=== PATIENT | male | born 1995 | race Caucasian/White ===

== ENCOUNTER 2016-03-24 21:24 | Emergency (ER) | payer OTHER ==
[~2016-03-24] VITALS: Ht 180.3 cm; Wt 78.7 kg
[2016-03-24 21:27] VITALS: TEMP 36.9; Ht 180.3 cm; Wt 78.7 kg
[2016-03-24] MEDS ORDERED: IBUP-103 PO (21:44)
--- NOTE | 2016-03-24 22:15 | DIAGNOSTIC IMAGING REPORT ---
RIGHT KNEE 3 VIEWS CLINICAL HISTORY: anterior pain/swelling s/p fall Right trauma. Pain. COMPARISON: None. DISCUSSION: Prepatellar soft tissue edema. No acute bony abnormality. Small ossific fragment posterior to the tibial spines with a be related to old trauma. No joint effusion. IMPRESSION: Prepatellar soft tissue edema. No acute bony abnormality. Electronically signed by: Gavin Og M.D. 03/24/2016 10:14 PM Dictated Date/Time: 03/24/2016 10:13 PM
--- NOTE | 2016-03-24 22:53 | EMERGENCY ROOM VISIT NOTE ---
ED Visit Note First contact with patient: 21:54 Chief Complaint: RIGHT Knee Injury History of Present Illness: This patient is a 20-year-old male who presents to the Emergency Department this evening for evaluation of their RIGHT Knee Injury. Patient states that they injured the knee while snowboarding. They report moderate pain over the anterior aspect of the knee after landing directly on the anterior surface of the RIGHT the knee. Pain is worse with ambulation. They deny any numbness or tingling into the distal extremity including the toes. They deny any pain extending into the affected foot or leg. Patient reports no previous fractures or surgeries of the affected knee. Patient rates his current discomfort as a 3/10. Patient has tried icing for their pain with mild relief of their symptoms. Medications: No current medications. Allergies: No known allergies. PMH: No pertinent past medical history. SHx: Patient is a 20-year-old [employer] student who lives with roommates. ROS: All pertinent positive and negative review of systems are appropriately documented in the History of Present Illness. Physical Exam: VITAL SIGNS - Vital signs and nursing notes were reviewed. GENERAL - 20-year-old male appearing his stated age and in noticeable discomfort throughout the exam. MUSCULOSKELETAL - RIGHT knee with moderate edema noted overlying the anterior and lateral surface. Mild tenderness to palpation appreciated over the anterior aspect of the knee. +5/5 strength appreciated bilaterally. No posterior sag sign. RANGE OF MOTION: Greater than 110 Flexion with 0 Extension. PATELLAR APPREHENSION TEST: Unremarkable. VARUS/VALGUS STRESS: Unremarkable. KRISSY'S TEST: Without guarding. Strong Endpoint. ANTERIOR/POSTERIOR DRAWER TEST: Without guarding. Strong endpoint. NEUROLOGIC/VASCULAR - Neurovascularly intact distally with +3/5 dorsalis pedis pulses palpated bilaterally. Normal sensation to light and sharp touch appreciated distally. IMAGING: RIGHT KNEE 3 VIEWS CLINICAL HISTORY: anterior pain/swelling s/p fall Right trauma. Pain. COMPARISON: None. DISCUSSION: Prepatellar soft tissue edema. No acute bony abnormality. Small ossific fragment posterior to the tibial spines with a be related to old trauma. No joint effusion. IMPRESSION: Prepatellar soft tissue edema. No acute bony abnormality. ED Course: Patient was seen and evaluated by myself. Patient was provided an ice pack for comfort. Patient declines for their complaint of pain. X-rays were obtained of the affected knee. Imaging results as above. Images were discussed and reviewed with the patient who acknowledges understanding. Patient was provided an Shahriar Wrap and Crutches for their comfort. Patient will utilize [id number] medications for pain control at home. Patient educated on worrisome symptoms for return visit to the emergency department. Patient with follow-up with their primary care provided in 4-5 days if their symptoms are not improving. Patient discharged to home in good condition. Impression: RIGHT Knee Contusion, Traumatic Prepatellar Bursitis Discharge Instructions: You have been treated in the Emergency Department for Knee Contusion with Traumatic Prepatellar Bursitis. For pain control, you can use the following [id number] medicines (if >12 yo): - Regular strength (325mg/tab) Tylenol (acetaminophen) 2 tabs every 4-6 hours as needed. Do not exceed 12 tablets in a 24 hour period. Avoid taking more than 4 grams (4000 mg) of Tylenol per day. This includes any other sources of acetaminophen you may take on a regular basis. - Regular strength (200 mg/tab) Advil (ibuprofen) 1-2 tabs every 4-6 hours as needed. Do not exceed a dose of 3200 mg per day. If this is a recent injury (<24 hrs), ice can be applied to the area of pain for the first 3 days to help decrease pain and inflammation. Ice massages can be performed by freezing water in a paper cup, peeling back the cup to expose the ice and then massaging over the affected area. You have been provided the number for an Orthopaedic Surgeon. You should call this number as soon as possible to establish a follow-up visit from today's Emergency Department visit. Keep the knee brace in place until cleared by Orthopedics. Use the crutches you have been provided to keep ALL weight off of the knee until weight bearing is tolerable. Return to the Emergency Department if your current symptoms worsen despite treatment course outlined above. Current/Historical Medications Scheduled Ibuprofen Tab (Advil), 400 MG PO PRN UD Allergies Coded Allergies: No Known Allergies (Unverified , 11/26/13) Vital Signs Date Time Temp Pulse Resp B/P Pulse Ox O2 Delivery O2 Flow Rate FiO2 03/24/16 23:06 100 18 133/86 96 03/24/16 23:00 100 18 133/86 96 Room Air 03/24/16 21:27 36.9 118 18 133/81 96 Room Air Departure Information Impression Primary Impression: Contusion of knee Additional Impression: Prepatellar bursitis Dispostion Home / Self-Care Condition GOOD Referrals [facility] (PCP) Patient Instructions ED Bursitis, [facility] Additional Instructions You have been treated in the Emergency Department for Knee Contusion with Traumatic Prepatellar Bursitis. For pain control, you can use the following [id number] medicines (if >12 yo): - Regular strength (325mg/tab) Tylenol (acetaminophen) 2 tabs every 4-6 hours as needed. Do not exceed 12 tablets in a 24 hour period. Avoid taking more than 4 grams (4000 mg) of Tylenol per day. This includes any other sources of acetaminophen you may take on a regular basis. - Regular strength (200 mg/tab) Advil (ibuprofen) 1-2 tabs every 4-6 hours as needed. Do not exceed a dose of 3200 mg per day. If this is a recent injury (<24 hrs), ice can be applied to the area of pain for the first 3 days to help decrease pain and inflammation. Ice massages can be performed by freezing water in a paper cup, peeling back the cup to expose the ice and then massaging over the affected area. You have been provided the number for an Orthopaedic Surgeon. You should call this number as soon as possible to establish a follow-up visit from today's Emergency Department visit. Keep the knee brace in place until cleared by Orthopedics. Use the crutches you have been provided to keep ALL weight off of the knee until weight bearing is tolerable. Return to the Emergency Department if your current symptoms worsen despite treatment course outlined above. Problem Qualifiers Primary Impression: Contusion of knee Encounter type: initial encounter Laterality: right Qualified Codes: S80.01XA - Contusion of right knee, initial encounter Additional Impression: Prepatellar bursitis Laterality: right Qualified Codes: M70.41 - Prepatellar bursitis, right knee
[2016-03-24 23:06] VITALS: BP 133/86; PULSE 100; O2SAT 96
== END 2016-03-24 23:07 | disposition home or self-care (01) ==
LOC: C.EDB 21:26 → C.EDD 23:07
DX: S80.01XA Contusion of right knee, initial encounter (principal); M70.41 Prepatellar bursitis, right knee; X58.XXXA Exposure to other specified factors, initial encounter; Y93.23 Activity, snow (alpine) (downhill) skiing, snowboarding, sledding, tobogganing and snow tubing